=== PATIENT | female | born 1955 | race Caucasian/White ===

== ENCOUNTER 2021-01-17 12:35 | Emergency (ER) | payer MEDICARE, OTHER ==
[~2021-01-17] VITALS: Ht 162.6 cm; Wt 81.7 kg
[~2021-01-17 12:35] MED LIST: CRUTCH4 MISC; HYDR1TAB94 PO; IBUP600 PO; Levaquin750 MG PO; OMEP20ER
[2021-01-17 13:18] LABS: BASOPHILS ABSOLUTE AUTO 0.03 K/mm3 (0.00-0.23); BASOPHILS PERCENT AUTO 0 % (0-2); EOSINOPHILS ABSOLUTE AUTO 0.14 K/mm3 (0.00-0.68); EOSINOPHILS PERCENT AUTO 2 % (0-6); Hematocrit 45.7 % (33.0-51.0); Hemoglobin 14.9 g/dL (11.5-16.0); IMMATURE GRAN ABSOLUTE AUTO 0.02 K/mm3 (0.00-0.10); IMMATURE GRAN PERCENT AUTO 0 % (0-1); LYMPHOCYTES ABSOLUTE AUTO 1.67 K/mm3 (0.84-5.20); LYMPHOCYTES PERCENT AUTO 19 % (21-46); MONOCYTES ABSOLUTE AUTO 0.67 K/mm3 (0.16-1.47); MONOCYTES PERCENT AUTO 8 % (4-13); Mean Corpuscular HGB 28.2 pg (26.0-34.0); Mean Corpuscular HGB Conc 32.6 g/dL (31.5-36.5); Mean Corpuscular Volume 87 fL (80-100); Mean Platelet Volume 11.2 fL (9.1-12.4); NEUTROPHILS PERCENT AUTO 71 % (41-73); Platelet Count 185 K/mm3 (150-400); RDW Coefficient Variation 13.2 % (11.7-14.2); Red Blood Cell Count 5.28 M/mm3 (3.80-5.20); White Blood Cell Count 8.83 K/mm3 (4.00-11.30)
[2021-01-17 13:31] LABS: Alanine Aminotransfer (ALT/SGP 167 U/L (12-78); Albumin/Globulin Ratio 1.1 (0.8-1.8); Alk Phos 200 U/L (50-136); Anion Gap 9 mmol/L (6-16); Aspartate Aminotrans (AST/SGOT 110 U/L (12-37); Bilirubin, Total 0.6 mg/dL (0.1-1.0); Blood Urea Nitrogen 16 mg/dL (8-24); Bun/Creatinine Ratio 19.1 (12.0-20.0); CO2, Blood 26 mmol/L (21-32); Calcium, Blood 9.1 mg/dL (8.5-10.1); Chloride, Blood 105 mmol/L (98-108); Creatinine, Blood 0.84 mg/dL (0.40-1.00); Globulin, Blood 3.7 g/dL (2.2-4.0); Glomerular Filtration Rate >60 (60-); Glucose, Blood 113 mg/dL (70-99); Potassium, Blood 3.9 mmol/L (3.5-5.5); Sodium, Blood 140 mmol/L (136-145); Total Protein, Blood 7.7 g/dL (6.4-8.2)
[2021-01-17 14:06] LABS: Source, Urine Clean Catch
[2021-01-17 14:10] LABS: Appearance, Urine Hazy (Clear); Bilirubin, Urine Neg (Neg); Blood, Urine 1+ (Neg); Color, Urine Yellow (P-Yellow); Glucose Qualitative, Urine Neg (Neg); Ketones, Urine 1+ (Neg); Leukocyte Esterase, Urine 3+ (Neg); Nitrite, Urine Neg (Neg); Protein, Urine 1+ (Neg); Specific Gravity, Urine 1.025 (1.003-1.022); Urobilinogen, Urine NORM (Normal)
[2021-01-17 14:28] LABS: Bacteria Many /hpf
[2021-01-17 14:29] LABS: Squamous Epithelial Cells Many /hpf (Few)
[2021-01-17] MEDS ORDERED: CIPR500 PO (17:34)
[2021-01-17] MEDS ORDERED: CELE100 PO (20:00)
[2021-01-17] MEDS ORDERED: OMEP20ER PO (20:01)
== END 2021-01-17 18:45 | disposition home or self-care (01) ==
LOC: ER 12:35
PROVIDERS: Physician Assistant
DX: N10 Acute pyelonephritis (principal); Z79.899 Other long term (current) drug therapy
CPT/HCPCS: 36415; 76705; 80053; 81001; 83690; 85025; 87086; 96365; 96366; 96375; 99284-25; J0696; J1885

== ENCOUNTER 2021-05-21 09:24 | Emergency (ER) | payer MEDICARE, OTHER ==
[~2021-05-21] VITALS: Ht 165.1 cm; Wt 84.8 kg
[~2021-05-21 09:24] MED LIST changes: +CELE100 PO; +CIPR500 PO; +OMEP20ER PO
[2021-05-21] MEDS ORDERED: CELE200 PO (09:52)
[2021-05-21] MEDS ORDERED: STATIN (09:52)
[2021-05-21] MEDS ORDERED: NEURONTIN400 M1 PO (09:52)
[2021-05-21 09:53] LABS: BASOPHILS ABSOLUTE AUTO 0.04 K/mm3 (0.00-0.23); BASOPHILS PERCENT AUTO 0 % (0-2); EOSINOPHILS ABSOLUTE AUTO 0.08 K/mm3 (0.00-0.68); EOSINOPHILS PERCENT AUTO 1 % (0-6); Hematocrit 42.6 % (33.0-51.0); Hemoglobin 13.7 g/dL (11.5-16.0); IMMATURE GRAN ABSOLUTE AUTO 0.04 K/mm3 (0.00-0.10); IMMATURE GRAN PERCENT AUTO 0 % (0-1); LYMPHOCYTES ABSOLUTE AUTO 0.87 K/mm3 (0.84-5.20); LYMPHOCYTES PERCENT AUTO 7 % (21-46); MONOCYTES ABSOLUTE AUTO 0.75 K/mm3 (0.16-1.47); MONOCYTES PERCENT AUTO 6 % (4-13); Mean Corpuscular HGB 27.9 pg (26.0-34.0); Mean Corpuscular HGB Conc 32.2 g/dL (31.5-36.5); Mean Corpuscular Volume 87 fL (80-100); Mean Platelet Volume 10.9 fL (9.1-12.4); NEUTROPHILS ABSOLUTE AUTO 10.05 K/mm3 (1.96-9.15); NEUTROPHILS PERCENT AUTO 85 % (41-73); Platelet Count 200 K/mm3 (150-400); RDW Coefficient Variation 13.4 % (11.7-14.2); RDW Standard Deviation 42.5 fL (35.1-46.3); Red Blood Cell Count 4.91 M/mm3 (3.80-5.20); White Blood Cell Count 11.83 K/mm3 (4.00-11.30)
[2021-05-21 10:17] LABS: Alanine Aminotransfer (ALT/SGP 105 U/L (12-78); Albumin, Blood 3.2 g/dL (3.4-5.0); Albumin/Globulin Ratio 0.9 (0.8-1.8); Alk Phos 190 U/L (50-136); Anion Gap 7 mmol/L (6-16); Aspartate Aminotrans (AST/SGOT 45 U/L (12-37); Bilirubin, Direct 0.2 mg/dL (0.0-0.3); Bilirubin, Indirect 0.5 mg/dL (0.1-0.7); Bilirubin, Total 0.7 mg/dL (0.1-1.0); Blood Urea Nitrogen 15 mg/dL (8-24); Bun/Creatinine Ratio 23.5 (12.0-20.0); CO2, Blood 25 mmol/L (21-32); Calcium, Blood 8.9 mg/dL (8.5-10.1); Chloride, Blood 106 mmol/L (98-108); Creatinine, Blood 0.64 mg/dL (0.40-1.00); Globulin, Blood 3.6 g/dL (2.2-4.0); Glomerular Filtration Rate >60 (60-); Glucose, Blood 206 mg/dL (70-99); Magnesium, Blood 1.7 mg/dL (1.6-2.4); Potassium, Blood 3.9 mmol/L (3.5-5.5); Sodium, Blood 138 mmol/L (136-145); Total Protein, Blood 6.8 g/dL (6.4-8.2)
[2021-05-21 11:06] LABS: Influenza A, PCR NEGATIVE (NEGATIVE); Influenza B, PCR NEGATIVE (NEGATIVE); Resp Syncytial Virus, PCR NEGATIVE (NEGATIVE); SARS-Cov-2 (COVID-19) PCR, MMC NEGATIVE (NEGATIVE)
[2021-05-21 12:31] LABS: Source, Urine Clean Catch
[2021-05-21 12:34] LABS: Appearance, Urine Clear (Clear); Bilirubin, Urine Neg (Neg); Blood, Urine Neg (Neg); Color, Urine Yellow (P-Yellow); Glucose Qualitative, Urine Neg (Neg); Ketones, Urine Neg (Neg); Leukocyte Esterase, Urine Neg (Neg); Nitrite, Urine Neg (Neg); Protein, Urine Neg (Neg); Urobilinogen, Urine NORM (Normal)
[2021-05-21] MEDS ORDERED: ONDA4ODT MM (13:35)
== END 2021-05-21 14:16 | disposition home or self-care (01) ==
LOC: ER 09:24
PROVIDERS: Student in an Organized Health Care Education/Training Program
DX: B34.9 Viral infection, unspecified (principal); R63.0 Anorexia; R11.0 Nausea; Z79.899 Other long term (current) drug therapy
CPT/HCPCS: 0241U; 71045; 80048; 80076; 81003; 83690; 83735; 84145; 85025; 85379; 93005; 93010; 96374; 99284-25; J1885; J7030

== ENCOUNTER 2023-02-21 20:51 | Emergency (ER) | payer MEDICARE, OTHER ==
[~2023-02-21] VITALS: Ht 162.6 cm; Wt 81.7 kg
[~2023-02-21 20:51] MED LIST changes: +CELE200 PO; +Lovastatin20 MG; +NEURONTIN400 M1 PO; +ONDA4ODT MM; +PREG25; +STATIN
[2023-02-21] MEDS ORDERED: CYCL10 PO (22:54)
[2023-02-21] MEDS ORDERED: LIDO700A20 TOP (22:55)
[2023-02-21 23:00] VITALS: BP 129/63
== END 2023-02-21 23:06 | disposition home or self-care (01) ==
LOC: ER 20:51
DX: M25.562 Pain in left knee (principal); E11.9 Type 2 diabetes mellitus without complications; I10 Essential (primary) hypertension; E78.5 Hyperlipidemia, unspecified; Z87.440 Personal history of urinary (tract) infections; Z86.14 Personal history of Methicillin resistant Staphylococcus aureus infection; Z79.899 Other long term (current) drug therapy
CPT/HCPCS: 73560-LT; 93971; A9270; J1885

== ENCOUNTER → 2023-04-16 | Outpatient (CLI) | payer MEDICARE, OTHER ==
[~2023-04-16] MED LIST changes: +CYCL10 PO; +LIDO700A20 TOP
== END | disposition home or self-care (01) ==
LOC: PLD 14:32 → LAB SHORT 14:32
DX: D48.5 Neoplasm of uncertain behavior of skin (principal)
CPT/HCPCS: 88305

== ENCOUNTER 2023-04-25 08:30 | Day surgery (SDC) | payer MEDICARE, OTHER ==
[~2023-04-25] VITALS: Ht 165.1 cm; Wt 80.8 kg
[2023-04-25 10:47] VITALS: BP 129/72
--- NOTE | 2023-04-25 10:53 | NUR ---
04/25/23 [facility] CONSULTED PRIOR TO PROCEDURE BECAUSE IN PRE-OP PATIENT'S SPO2 WAS FLUCTUATING BETWEEN 89-91%. PROBE CHANGED TO FINGER ON OTHER HAND AND SPO2 STAYED THE SAME. PATIENT SAT STRAIGHT UP IN BED AND HANDS WERE WARM AND SPO2 IMPROVED TO 91-93%. PATIENT PLACED ON EAR PROBE AND ENCOURAGED TO COUGH AND SPO2 IMPROVED TO 93-95% AND MAINTAINED THIS SATURATION. PER DR HANKS OK TO PROCEED. RN PLACED PATIENT ON POM MASK AT 10 LPM FOR PROCEDURE.
== END 2023-04-25 10:38 | disposition home or self-care (01) ==
LOC: ORSCSDS 08:30
PROVIDERS: Specialist
PROC: 0DBM8ZX Excision of Descending Colon, Via Natural or Artificial Opening Endoscopic, Diagnostic (ICD-10-PCS; principal; 2023-04-25 10:00)
PROC: 0DBP8ZX Excision of Rectum, Via Natural or Artificial Opening Endoscopic, Diagnostic (ICD-10-PCS; principal; 2023-04-25 10:00)
DX: Z12.11 Encounter for screening for malignant neoplasm of colon (principal); Z86.010 Personal history of colon polyps; K57.30 Diverticulosis of large intestine without perforation or abscess without bleeding; Z79.899 Other long term (current) drug therapy
CPT/HCPCS: 82947; 88305; J2704; J7120

== ENCOUNTER 2024-10-07 16:35 | Emergency (ER) | payer MEDICARE, OTHER ==
[~2024-10-07] VITALS: Ht 165.1 cm; Wt 78.0 kg
[2024-10-07] MEDS ORDERED: Mag Hydrox/AL Hydrox/Simeth 30 ML UDC PO ONE (18:15)
[2024-10-07] MEDS ORDERED: diphenhydrAMINE HCl 12.5 MG/5 ML 5MLUDC (Alcohol/Dye Free) PO ONE (18:15)
[2024-10-07] MEDS ORDERED: Lidocaine 2% Viscous Soln 15 ML UDC PO ONE (18:15)
[2024-10-07 19:00] VITALS: BP 137/73
== END 2024-10-07 19:55 | disposition home or self-care (01) ==
LOC: ER 16:35
DX: R13.10 Dysphagia, unspecified (principal); E11.9 Type 2 diabetes mellitus without complications; I10 Essential (primary) hypertension; E78.5 Hyperlipidemia, unspecified; Z79.899 Other long term (current) drug therapy
CPT/HCPCS: 71046; 99283-25; A9270

== ENCOUNTER 2024-10-09 14:05 | Emergency (ER) | payer MEDICARE, OTHER ==
[~2024-10-09] VITALS: Ht 165.1 cm; Wt 76.2 kg
[2024-10-09] VITALS (9 sets, daily range): BP systolic 127–145; BP diastolic 72–84
[2024-10-09] MEDS ORDERED: Glucagon 1 MG/KIT VIAL IV ONE (14:35)
[2024-10-09] MEDS ORDERED: Glucagon, Human Recombinant 1 MG/Vial IV ONE (14:40)
[2024-10-09 14:55] LABS: BASOPHILS ABSOLUTE AUTO 0.04 K/mm3 (0.00-0.23); BASOPHILS PERCENT AUTO 0 % (0-2); EOSINOPHILS PERCENT AUTO 2 % (0-6); Hematocrit 43.3 % (33.0-51.0); Hemoglobin 14.7 g/dL (11.5-16.0); IMMATURE GRAN ABSOLUTE AUTO 0.03 K/mm3 (0.00-0.10); IMMATURE GRAN PERCENT AUTO 0 % (0-1); LYMPHOCYTES ABSOLUTE AUTO 2.58 K/mm3 (0.84-5.20); LYMPHOCYTES PERCENT AUTO 27 % (21-46); MONOCYTES ABSOLUTE AUTO 0.72 K/mm3 (0.16-1.47); MONOCYTES PERCENT AUTO 8 % (4-13); Mean Corpuscular HGB 28.6 pg (26.0-34.0); Mean Corpuscular HGB Conc 33.9 g/dL (31.5-36.5); Mean Corpuscular Volume 84 fL (80-100); Mean Platelet Volume 10.3 fL (9.1-12.4); NEUTROPHILS ABSOLUTE AUTO 5.89 K/mm3 (1.96-9.15); NEUTROPHILS PERCENT AUTO 62 % (41-73); Platelet Count 204 K/mm3 (150-400); RDW Coefficient Variation 13.1 % (11.7-14.2); RDW Standard Deviation 40.5 fL (35.1-46.3); Red Blood Cell Count 5.14 M/mm3 (3.80-5.20); White Blood Cell Count 9.46 K/mm3 (4.00-11.30)
[2024-10-09 15:17] LABS: Bun/Creatinine Ratio 18.3 (12.0-20.0); Calcium, Blood 8.9 mg/dL (8.5-10.1); Creatinine, Blood 0.65 mg/dL (0.40-1.00); Potassium, Blood 3.6 mmol/L (3.5-5.5)
[2024-10-09] MEDS ORDERED: NS 1,000 ML IV SCH (16:00)
[2024-10-09] MEDS ORDERED: Ketorolac Tromethamine 15mg Vial IV ONE (16:15)
[2024-10-09] MEDS ORDERED: propofoL 20 ML IV ONE (18:06)
[2024-10-09] MEDS ORDERED: Sugammadex Sodium 200 MG/2ML SDV (100 MG/ML) ONE (18:08)
[2024-10-09] MEDS ORDERED: Lactated Ringer's 1,000 ML IV ONE (18:13)
[2024-10-09] MEDS ORDERED: EpiNEPhrine 1 MG/1 ML 1ML Vial ONE (18:15)
[2024-10-09] MEDS ORDERED: Ethanolamine Oleate 50MG/ML 2ML Amp ONE (18:16)
[2024-10-09] MEDS ORDERED: Lactated Ringer's 1,000 ML IV SCH (18:30)
[2024-10-09] MEDS ORDERED: Lidocaine HCl 1% 5 ML SYR INJ ONE (18:30)
[2024-10-09] MEDS ORDERED: Ondansetron HCl 2 MG / ML 2ML Vial IV PRN (18:35)
[2024-10-09] MEDS ORDERED: Albuterol 2.5 MG/3 ML VIAL INH PRN (18:35)
[2024-10-09] MEDS ORDERED: SuccINYLCHOLINE Chloride 100 MG/5 ML 5MLSYR ONE (19:13)
[2024-10-09] MEDS ORDERED: Ondansetron HCl 2 MG / ML 2ML Vial ONE (19:13)
[2024-10-09] MEDS ORDERED: Dexamethasone Sod Phos 10 MG/ML 1ML VIAL ONE (19:13)
[2024-10-09] MEDS ORDERED: Rocuronium Bromide 10 MG/ML 5ML Injection IV ONE (19:13)
--- NOTE | 2024-10-09 19:23 | NUR ---
10/09/241922 [facility] MAC CASE IN OR 2 WITH CAMILA DORSEY; SEE ANESTHESIA RECORDS.
== END 2024-10-09 18:11 | disposition home or self-care (01) ==
LOC: ER 14:05
PROVIDERS: Emergency Medicine
DX: T18.128A Food in esophagus causing other injury, initial encounter (principal); I10 Essential (primary) hypertension; E11.9 Type 2 diabetes mellitus without complications; E78.5 Hyperlipidemia, unspecified; Z87.891 Personal history of nicotine dependence; Z79.899 Other long term (current) drug therapy
CPT/HCPCS: 71046; 80048; 82947; 85025; 96374; 96375; 99284-25; J0171; J0330; J1100; J1430; J1610; J1885; J2405; J2704; J7030; J7120